=== PATIENT | female | born 1990 | race Caucasian/White ===

== ENCOUNTER 2017-01-12 08:56 | Emergency (ER) | payer MEDICAID ==
[~2017-01-12] VITALS: Ht 160 cm; Wt 62.3 kg
[2017-01-12] MEDS ORDERED: CLARITIN 1010 MG/TAB PO (09:02)
[2017-01-12] MEDS ORDERED: ZOFRAN 4MG T4 MG/TAB PO (09:02)
[2017-01-12] MEDS ORDERED: OMNICEF 300MG300 MG PO (10:00)
[2017-01-12 11:01] VITALS: BP 137/93; PULSE 100; TEMP 98.5
== END 2017-01-12 11:02 | disposition home or self-care (01) ==
LOC: COL.ER 08:56
DX: O99.513 Diseases of the respiratory system complicating pregnancy, third trimester (principal); J01.90 Acute sinusitis, unspecified; Z3A.29 29 weeks gestation of pregnancy

== ENCOUNTER 2017-02-07 15:33 | Inpatient (IN) | payer MEDICAID ==
[~2017-02-07] VITALS: Ht 152.4 cm; Wt 67.7 kg
[~2017-02-07 15:33] MED LIST: CLARITIN 1010 MG/TAB PO; OMNICEF 300MG300 MG PO; ZOFRAN 4MG T4 MG/TAB PO
[2017-03-30] VITALS (33 sets, daily range): BP systolic 106–1331; BP diastolic 46–92; PULSE 60–110; TEMP 98.4–98.7
[2017-03-30 13:15] LABS: BASO % 0.4 % (0.0-2.0); EOS % 0.5 % (0-4.0); GRAN # 6.1 (1.4-6.5); GRAN % 72.7 % (42.2-75.2); LYMPH # 1.5 (1.2-3.4); LYMPH % 17.9 % (20.0-51.0); MEAN CELL VOLUME 78 fl (80.0-100.0); MEAN CORPUSCULAR HGB CONC 31 g/dl (33.0-37.0); MONO # 0.6 (0.1-0.6); MONO % 7.1 % (1.7-9.3); PLATELET COUNT 149 K/mm3 (130-400); RED BLOOD COUNT 4.61 M/mm3 (4.10-5.30); REDCELL DISTRIBUTION WIDTH-CV 14.8 % (11.5-14.5); WHITE BLOOD COUNT 8.3 K/mm3 (4.8-10.8)
[2017-03-30 13:16] LABS: HEMATOCRIT 35.9 % (37.0-47.0); HEMOGLOBIN 11.2 g/dl (12.5-16.0); MEAN CORPUSCULAR HEMOGLOBIN 24 pg (27.0-31.0)
[2017-03-31 04:00] VITALS: BP 120/80; PULSE 80; TEMP 98.3
[2017-03-31 09:00] VITALS: BP 129/86; PULSE 66; TEMP 98.2
[2017-03-31 16:00] VITALS: BP 133/81; PULSE 84; TEMP 98.2
[2017-03-31 19:45] VITALS: BP 123/73; PULSE 76; TEMP 98.2
[2017-04-01 08:00] VITALS: BP 125/75; PULSE 66; TEMP 98.1
[2017-04-01] MEDS ORDERED: IBU600 MG PO (11:37)
[2017-04-01] MEDS ORDERED: PERCOCET 325 MG1 TA2 PO (11:38)
[2017-04-01] MEDS ORDERED: ZOLOFT 100MG100 MG PO (11:39)
[2017-04-01] MEDS ORDERED: NEWMANS TOP (12:06)
== END 2017-04-01 12:55 | disposition home or self-care (01) | DRG 775 ==
LOC: EDSTATUS 03-26 11:37 → LDRO 03-26 15:33 → LDR 03-30 11:46 → OB 03-30 20:25
PROVIDERS: Obstetrics & Gynecology
PROC: 10E0XZZ Delivery of Products of Conception, External Approach (ICD-10-PCS; principal; 2017-03-30)
PROC: 3E033VJ Introduction of Other Hormone into Peripheral Vein, Percutaneous Approach (ICD-10-PCS; 2017-03-30)
PROC: 0HQ9XZZ Repair Perineum Skin, External Approach (ICD-10-PCS; 2017-03-30)
DX: O48.0 Post-term pregnancy (principal); O41.03X0 Oligohydramnios, third trimester, not applicable or unspecified; O70.0 First degree perineal laceration during delivery; Z3A.40 40 weeks gestation of pregnancy; Z37.0 Single live birth
CPT/HCPCS: J2405; J2590; J2795; J7120

== ENCOUNTER → 2018-01-07 | Outpatient (CLI) | payer MEDICAID ==
[~2018-01-07] MED LIST changes: +IBU600 MG PO; +NEWMANS TOP; +PERCOCET 325 MG1 TA2 PO; +ZOLOFT 100MG100 MG PO
== END ==
LOC: COL.RAD 10:23
DX: Q79.59 Other congenital malformations of abdominal wall (principal); Z00.00 Encounter for general adult medical examination without abnormal findings

== ENCOUNTER → 2018-12-19 | Outpatient (CLI) | payer MEDICAID | LOC: COL.RAD 10:30 | DX: R10.13 Epigastric pain (principal) ==

== ENCOUNTER → 2020-01-14 | Outpatient (CLI) | payer SELFPAY | LOC: MC.RAD 08:59 | DX: N64.4 Mastodynia (principal) ==